=== PATIENT | female | born 1965 | race Hispanic/Latino ===

== ENCOUNTER 2017-01-03 16:03 | Outpatient (CLI) | payer OTHER ==
--- NOTE | 2017-01-04 15:30 | Mammography Report ---
BILATERAL DIGITAL SCREENING MAMMOGRAM with CAD: 01/03/17 16:03:00 CLINICAL: Routine screening. COMPARISON:08/04/15, 07/22/14 and 08/12/13 FINDINGS: The breasts are heterogeneously dense, which may obscure small masses. Right asymmetry on the MLO view requires additional imaging.No architectural distortion or suspicious calcifications.The left breast is negative. IMPRESSION: Right asymmetry requiring further workup. BI-RADS CATEGORY: 0 -- Additional Imaging Evaluation Required RECOMMENDATION: Recall for right spot magnification MLO view and right breast ultrasound if needed. ACR BI-RADS MAMMOGRAPHIC CODES: 0 = Needs additional imaging evaluation; 1 = Negative; 2 = Benign; 3 = Probably benign; 4 = Suspicious; 5 = Malignant; 6 = Known biopsy-proven malignancy COMMENT: 1. Dense breast tissue, i.e., adenosis, fibrocystic changes, etc., may obscure an underlying neoplasm. 2. Approximately 10% of cancers are not detected with mammography. 3. A negative mammography report should not delay biopsy if a clinically suspicious mass is present. COMMENT: Patient follow-up letters are generated via our [employer] application.
== END 2017-01-03 16:04 | disposition home or self-care (01) ==
LOC: SPVWC 16:03
PROVIDERS: ATTEND Family Medicine
DX: Z12.31 Encounter for screening mammogram for malignant neoplasm of breast (principal)
CPT/HCPCS: 77067; G0202

== ENCOUNTER 2017-01-31 08:25 | Outpatient (CLI) | payer OTHER ==
--- NOTE | 2017-01-31 09:06 | Mammography Report ---
Diagnostic right mammogram. History: Recall for right asymmetry. Findings: A spot compression in MLO projection demonstrates no evidence of residual asymmetry or mass. Similarly, the 90 degree view demonstrates no focal findings. There is no architectural distortion or suspicious calcifications. Impression: Negative right mammogram. BI-RADS code: 1. Recommendation: Annual screening.
== END 2017-01-31 08:26 | disposition home or self-care (01) ==
LOC: SPVWC 08:25
PROVIDERS: ATTEND Family Medicine
DX: N60.11 Diffuse cystic mastopathy of right breast (principal)
CPT/HCPCS: G0206-RT